=== PATIENT | female | born 1950 | race Caucasian/White ===

== ENCOUNTER 2020-02-12 15:49 | Emergency (ER) | payer OTHER ==
--- NOTE | 2020-02-12 16:15 | EDM.PDOC ---
ED HPI GENERAL MEDICAL PROBLEM - General Chief Complaint: Upper Extremity Injury/Pain Stated Complaint: FALL (RIGHT WRIST PAIN) Time Seen by Provider: 02/12/20 16:05 - History of Present Illness INITIAL COMMENTS - FREE TEXT/NARRATIVE: 69-year-old female presents the emergency room with a right wrist injury. Patient tripped and landed on outstretched arm. She has some swelling about her right wrist however she still pretty good active range of motion of her right wrist neurovascular status of the hand appears to be okay. Patient denies any other injuries associated with this unfortunate mishap Right Wrist Pain Score (Numeric/FACES): 0 - Related Data Allergies Allergy/AdvReac Type Severity Reaction Status Date / Time No Known Allergies Allergy Verified 02/12/20 16:04 Home Meds: Home Meds amLODIPine [Norvasc] 2.5 mg PO DAILY 02/12/20 [History] lisinopriL [Lisinopril] 40 mg PO DAILY 02/12/20 [History] Review of Systems - Review of Systems Review Of Systems: See Below Constitutional: Reports: No Symptoms Respiratory: Reports: No Symptoms Cardiovascular: Reports: No Symptoms GI/Abdominal: Reports: No Symptoms ED EXAM, GENERAL - Physical Exam Exam: See Below Exam Limited By: No Limitations General Appearance: Alert, No Apparent Distress Respiratory/Chest: No Respiratory Distress, Lungs Clear, Normal Breath Sounds Cardiovascular: Regular Rate, Rhythm, No Edema, No Murmur Extremities: Other (Lamination of the right upper extremity shows intact neurovascular status in the right hand. Flexion extension of the wrist is normal digits are normal. She is got significant swelling both medial aspect of the wrist base of the thumb and the ulnar aspect of the wrist. Supination and pronation of the forearm is entirely within normal limits flexion extension of the elbow is entirely within normal limits) Course - Vital Signs Last Recorded V/S: Last Vital Signs Temp 37.0 C 02/12/20 15:57 Pulse 96 02/12/20 15:57 Resp 18 02/12/20 15:57 BP 151/95 H 02/12/20 15:57 Pulse Ox 100 02/12/20 15:57 - Re-Assessments/Exams Free Text/Narrative Re-Assessment/Exam: 02/12/20 17:14 Patient show an unfortunate shear type fracture of the distal radius with anterior displacement of the distal fragments. And shortening noted. Ulnar styloid fracture and possibly another fracture in the distal ulna. Hand shows no acute fracture dislocation but plenty of diffuse degenerative changes.. Case was discussed with Dr. Portillo. He would like to see the patient Thursday in the office anticipating surgical repair of this on patient is placed in the slab splint and the patient feels better after being placed in the slab splint.. Departure - Departure Time of Disposition: 18:01 Disposition: Home, Self-Care Clinical Impression: Wrist fracture, right - Discharge Information Referrals: PCP,None [Primary Care Provider] - Sky Portillo MD [Physician] - Forms: ED Department Discharge Additional Instructions: Return to the emergency room with any questions problems or worsening symptoms. Wear the splint at all times. You may adjust the Ger wrap as needed. There main jobs to hold the splint in place. Use Tylenol as needed for discomfort. Follow-up with Dr. Portillo on Thursday call in the morning to schedule an appointment. [phone] Sepsis Event Note - Evaluation Sepsis Screening Result: No Definite Risk - Focused Exam Vital Signs: Vital Signs Temp Pulse Resp BP Pulse Ox 02/12/20 15:57 37.0 C 96 18 151/95 H 100 Date Exam was Performed: 02/12/20 Time Exam was Performed: 18:00
--- NOTE | 2020-02-12 17:02 | CR ---
Right forearm: 2 views of the right forearm were obtained. Comparison: No previous study. Comminuted fracture is noted within the distal radius. Displacement is seen of the distal fragments anteriorly. Mildly displaced fracture is also noted at the base of the ulnar styloid process. Soft tissue swelling is noted. No additional forearm abnormality is appreciated. Impression: 1. Comminuted distal radial fracture with anterior displacement of the distal fragments. 2. Mildly displaced fracture involving the base of the ulnar styloid process. 3. Other findings as noted above. Diagnostic code #3 This report was dictated in MDT
--- NOTE | 2020-02-12 17:03 | CR ---
Right hand for views of the right hand were obtained. Comparison: No previous study. Displaced distal radial fracture is seen. Mildly displaced ulnar styloid avulsion fracture is noted. No additional acute finding is seen within the right hand. Scattered degenerative change is noted within the DIP, PIP and MCP joints as well as CMC joint of the thumb. IP joint of the thumb also shows degenerative change. Impression: 1. Wrist fracture as described on forearm exam. 2. Diffuse degenerative change. Diagnostic code #3 This report was dictated in MDT
== END 2020-02-12 18:13 | disposition home or self-care (01) ==
LOC: JD.ED 15:49
DX: S52.611A Displaced fracture of right ulna styloid process, initial encounter for closed fracture (principal); S52.501A Unspecified fracture of the lower end of right radius, initial encounter for closed fracture; Z79.899 Other long term (current) drug therapy; W01.0XXA Fall on same level from slipping, tripping and stumbling without subsequent striking against object, initial encounter
CPT/HCPCS: 29125; 73090-26-RT; 73090-RT; 73130-26-RT; 73130-RT; 99282; 99283-25

== ENCOUNTER 2020-02-16 08:02 | Day surgery (SDC) | payer OTHER ==
[~2020-02-16 08:02] MED LIST: Lidocaine 1%/Sod Bicarbonate in NS 8.4% 1 ML Syringe IDERM PRN; Lidocaine 2% with EPINEPHrine 1:200,000 20 ML SDV ONE; Sodium Chloride 0.9% 1,000 ML IV SCH; Sodium Chloride 0.9% 10 ML Syringe FLUSH PRN
[2020-02-16] MEDS ORDERED: Bupivacaine 0.5% 10 ML SDV ONE (08:32)
[2020-02-16] MEDS ORDERED: fentaNYL 100 MCG/2 ML SDV ONE (08:34)
[2020-02-16] MEDS ORDERED: Midazolam 1 MG/ML 2 ML SDV ONE (08:34)
[2020-02-16] MEDS ORDERED: Propofol 200 MG/20 ML SDV ONE ×2 (08:34→10:23)
[2020-02-16] MEDS ORDERED: cloNIDine 1,000 MCG/10 ML SDV ONE (08:35)
[2020-02-16] MEDS ORDERED: Lidocaine 1% 2 ML ONE (08:36)
[2020-02-16] MEDS ORDERED: Bupivacaine 0.25% 10 ML SDV ONE (08:39)
--- NOTE | 2020-02-16 08:59 | PCM.PREANE ---
Preanesthetic Assessment - Procedure Proposed Procedure: Right wrist ORIF - Anesthesia/Transfusion/Family Hx Anesthesia History: Prior Anesthesia Without Reaction - Review of Systems General: No Symptoms Pulmonary: No Symptoms Cardiovascular: No Symptoms Gastrointestinal: No Symptoms Neurological: No Symptoms Other: Reports: None - Physical Assessment NPO Status Date: 02/16/20 NPO Status Time: 21:00 ASA Class: 2 Mental Status: Alert & Oriented x3 Airway Class: Mallampati = 1 Dentition: Reports: Normal Dentition Thyro-Mental Finger Breadths: 3 Mouth Opening Finger Breadths: 3 ROM/Head Extension: Full Lungs: Clear to Auscultation, Normal Respiratory Effort Cardiovascular: Regular Rate, Regular Rhythm - Allergies Allergies/Adverse Reactions: Allergies Allergy/AdvReac Type Severity Reaction Status Date / Time No Known Allergies Allergy Verified 02/15/20 12:47 - Acknowledgements Anesthesia Type Planned: General Anesthesia, Regional Block (brachial plexus - axillary), MAC Pt an Appropriate Candidate for the Planned Anesthesia: Yes Alternatives and Risks of Anesthesia Discussed w Pt/Guardian: Yes Pt/Guardian Understands and Agrees with Anesthesia Plan: Yes PreAnesthesia Questionnaire HEENT History: Reports: Impaired Vision Cardiovascular History: Reports: Hypertension Respiratory History: Reports: None Gastrointestinal History: Reports: None Genitourinary History: Reports: Other (See Below) Other Genitourinary History: microscopic hematuria RN DIABETES History: Reports: None Musculoskeletal History: Reports: Other (See Below) Other Musculoskeletal History: right radius fracture Neurological History: Reports: None Psychiatric History: Reports: None Endocrine/Metabolic History: Reports: None Hematologic History: Reports: Other (See Below) Other Hematologic History: hyponatremia Immunologic History: Reports: None Oncologic (Cancer) History: Reports: None Dermatologic History: Reports: None - Past Surgical History Head Surgeries/Procedures: Reports: None HEENT Surgical History: Reports: None Cardiovascular Surgical History: Reports: None Respiratory Surgical History: Reports: None GI Surgical History: Reports: Appendectomy Endocrine Surgical History: Reports: None Neurological Surgical History: Reports: None Musculoskeletal Surgical History: Reports: Other (See Below) Other Musculoskeletal Surgeries/Procedures:: left wrist surgery with plates and screws Oncologic Surgical History: Reports: None Dermatological Surgical History: Reports: None - SUBSTANCE USE Smoking Status *Q: Never Smoker Recreational Drug Use History: No - HOME MEDS Home Medications: Home Meds lisinopriL [Lisinopril] 40 mg PO DAILY 02/12/20 [History] Multivitamin [Daily Gus] 1 tab PO DAILY 02/15/20 [History] amLODIPine Besylate [Amlodipine Besylate] 10 mg PO DAILY 02/15/20 [History] Acetaminophen/HYDROcodone [Estelline 325-5 MG] 1 - 2 tab PO Q6H PRN #30 tablet 02/15 [Rx] - CURRENT (IN HOUSE) MEDS Current Meds: Current Medications Discontinued Medications Bupivacaine HCl (Sensorcaine-Mpf 0.5%) Confirm Administered Dose 10 ml .ROUTE .STK-MED ONE Stop: 02/16/20 08:33 Bupivacaine HCl (Sensorcaine-Mpf 0.25%) Confirm Administered Dose 10 ml .ROUTE .STK-MED ONE Stop: 02/16/20 08:40 Clonidine HCl (Duraclon) Confirm Administered Dose 1,000 mcg .ROUTE .STK-MED ONE Stop: 02/16/20 08:36 Fentanyl (Sublimaze) Confirm Administered Dose 100 mcg .ROUTE .STK-MED ONE Stop: 02/16/20 08:35 Sodium Chloride (Normal Saline) 1,000 mls @ 125 mls/hr IV ASDIRECTED ELISSA Stop: 02/15/20 23:00 Lidocaine HCl (Xylocaine-Mpf 1%) Confirm Administered Dose 2 mls @ as directed .ROUTE .STK-MED ONE Stop: 02/16/20 08:37 Lidocaine/Epinephrine (Xylocaine-Mpf 2%-Epi 1:200,000) Confirm Administered Dose 20 ml .ROUTE .STK-MED ONE Stop: 02/16/20 07:46 Lidocaine/Sodium Bicarbonate (Buffered Lidocaine 1% In Ns 8.4%) 0.25 ml IDERM ONETIME PRN PRN Reason: Prior to IV Start Stop: 02/15/20 20:00 Midazolam HCl (Versed 1 Mg/Ml) Confirm Administered Dose 4 mg .ROUTE .STK-MED ONE Stop: 02/16/20 08:35 Propofol (Diprivan 20 Ml) Confirm Administered Dose 400 mg .ROUTE .STK-MED ONE Stop: 02/16/20 08:35 Sodium Chloride (Saline Flush) 10 ml FLUSH ASDIRECTED PRN PRN Reason: Keep Vein Open Stop: 02/15/20 23:00
[2020-02-16] MEDS ORDERED: Ondansetron 4 MG/2 ML SDV ONE (09:51)
[2020-02-16] MEDS ORDERED: ceFAZolin 1 GM Vial ONE (09:55)
[2020-02-16] MEDS ORDERED: Sodium Chloride 0.9% 1,000 ML ONE (10:41)
--- NOTE | 2020-02-16 10:58 | PCM.PRNOTE ---
- Free Text/Narrative Note: Postoperative regional pain control requested by surgeon. Pre-op Dx: Right wrist fracture Surgical procedure: Right wrist open reduction with internal fixation Procedure: Right axillary block of brachial plexus with U/S guidance Requesting physician: Dr. Swanson Ct Risks and benefits discussed with the patient preoperatively including infection , bleeding, incomplete or failed block, possible nerve damage, local anesthetic toxicity. Chart reviewed, VS stable. Permit signed. Patient in preoperative room, stable , alert and awake. Time out performed at 09:11 Oxygen 2L via NC. Right arm abducted 90 degrees, supinated and supported on the bedside table. Right arm has been prepped with Chloraprep x 1 and allowed to dry. Midazolam 2 mg IV has been given. Under aseptic technique, the brachial plexus branches were identified around axillary artery under ultrasound prior to needle insertion. Local skin infiltration with 2 mls of 1% Lidocaine. 2" Stimuplex needle #22 G was inserted under US guidance. Neuromuscular response of wrist twitching has been elicited at 0.6 mAmp. Under direct visualization of needle tip the injection of 0.5% Ropivacaine 10 ml mixed with 19 ml of Lidocaine 2% with 1:200k epinephrine and 100 mcg of Clonidine (total of 30 mls) in divided doses (26 mls at median, radial and ulnar branches, and 4 ml around musculocutaneous nerve after needle redirection. Negative aspiration was maintained with each 3 ml aliquot of injection. completed without problems. No local anesthetic toxicity was noted. Patient is awake, stable and tolerated the procedure well. Please see the attached U/S images Time: 09:11 - 09:25
--- NOTE | 2020-02-16 11:24 | PCM48HPAN ---
Post Anesthesia Note - EVALUATION WITHIN 48HRS OF ANESTHETIC Vital Signs in Normal Range: Yes Patient Participated in Evaluation: Yes Respiratory Function Stable: Yes Airway Patent: Yes Cardiovascular Function Stable: Yes Hydration Status Stable: Yes Pain Control Satisfactory: Yes Nausea and Vomiting Control Satisfactory: Yes Mental Status Recovered: Yes Vital Signs: Last Vital Signs Temp 97.6 F 02/16/20 11:11 Pulse 80 02/16/20 11:11 Resp 16 02/16/20 11:11 BP 114/71 02/16/20 11:11 Pulse Ox 96 02/16/20 11:11
--- NOTE | 2020-02-16 13:40 | CR ---
Right wrist: 5 fluoroscopic spot views were obtained of the right wrist. Comparison: Previous hand and forearm study of 02/12/20. Comminuted distal radial fracture is noted as well as ulnar styloid avulsion fracture. Study shows reduction of previous radial fracture with placement of plate and screws affixing the fracture. Fluoroscopy time is given as 27.1 seconds. Impression: 1. Procedural study as noted above. Diagnostic code #2 This report was dictated in MDT
--- NOTE | 2020-02-21 09:51 | PCM.OPNOTE ---
- General Post-Op/Procedure Note Date of Surgery/Procedure: 02/16/20 Operative Procedure(s): open reduction internal fixation of comminuted right distal radius fracture Pre Op Diagnosis: comminuted right distal radius fracture Post-Op Diagnosis: same with osteoporotic bone Anesthesia Technique: MAC, Regional Block Primary Surgeon: Sky Portillo Anesthesia Provider: Christopher Howe Commercial Accountant: Kamini Hayes EBL in mLs: 5 Complications: None Condition: Good
--- NOTE | 2020-02-21 12:04 | OR ---
DATE OF OPERATION: 02/16/2020 SURGEON: Sky Portillo MD OPERATION PERFORMED: Open reduction internal fixation of comminuted greater than 3 pieces right distal radius fracture. PREOPERATIVE DIAGNOSIS: Comminuted right distal radius fracture. POSTOPERATIVE DIAGNOSIS: Comminuted right distal radius fracture. ANESTHESIA: MAC with regional block. ANESTHESIA PROVIDER: Fabiana Bajwa. NON PROFIT DIRECTOR: Kamini Hayes PA-C ESTIMATED BLOOD LOSS: Less than 5 mL. COMPLICATIONS: None. CONDITION: Stable. DESCRIPTION OF PROCEDURE: The patient was identified in the preop holding area. Proper site was marked and identified by the surgeon. The patient was taken back to the operating theater where after adequate anesthesia, the patient had a nonsterile tourniquet applied to the right upper extremity. The right upper extremity was then sterilely prepped and draped in the usual sterile fashion. OR time-out was performed. The patient received 2 g of IV Ancef. Right upper extremity was then exsanguinated. Tourniquet was insufflated to 225 mmHg. Standard volar approach of Jaime was then done down to the FCR tendon. FCR tendon sheath was then opened and so was the floor of the tendon sheath. The tendon was retracted ulnarly to protect the median nerve. The patient at this time was noted to have significant damage to the pronator quadratus already, but we elevated the rest of it off the distal radius. It was noted to be significant comminuted volar shear-type injury with greater than 3 pieces. At this time, a reduction was done under direct visualization utilizing C-arm fluoroscopy. At this time, the patient was noted to have significant comminution. A [place] volar locking plate was then placed and it was found to be in adequate position. K-wire was then utilized to secure the plate into place. A nonlocking screw was then placed distally and the trajectory was found to be adequate. Next, a proximal nonlocking screw was attempted to be placed, but the patient's actual bone cracked as we were trying to even place the screw as she had severe osteoporosis. Next, I did try putting in the combination hole and again her cortex cracked. I had to reposition the plate and then place a nonlocking screw even at the most proximal hole and that 1 finally had adequate purchase secondary to the patient's severe osteoporosis. I was then able to place 2 locking screws in the proximal holes as well that were able to be bicortical to give it some hold. Next, I placed 3 more locking screws distally including into the radial styloid, which all had good adequate purchase. The patient had adequate spiritism of the volar tilt as well as radial height with good secure fixation of the fracture at this point. The case was significantly more difficult secondary to the patient's severe osteoporotic bone where her bone would start to break even with the screw holes. At this time, adequate saline was irrigated through the wound. 3-0 Vicryl was used subcutaneously as well as Monocryl for the skin. The patient was placed in a sterile soft dressing and a splint and will follow up in clinic. YOVANA /[id number]
== END 2020-02-16 12:43 | disposition home or self-care (01) ==
LOC: JD.SDS 08:02
PROVIDERS: ATTEND Orthopaedic Surgery
DX: S52.511A Displaced fracture of right radial styloid process, initial encounter for closed fracture (principal); M81.0 Age-related osteoporosis without current pathological fracture; I10 Essential (primary) hypertension; R31.29 Other microscopic hematuria; E87.1 Hypo-osmolality and hyponatremia; Z79.899 Other long term (current) drug therapy; W19.XXXA Unspecified fall, initial encounter
CPT/HCPCS: 25609; 76000; C1713; C1776; J0690; J0735; J2001; J2250; J2405; J2704; J3010; J3490; J7030